=== PATIENT | male | born 1935 | race Caucasian/White ===

== ENCOUNTER 2016-07-08 07:17 | Day surgery (SDC) | payer MEDICARE, OTHER ==
[~2016-07-08 07:17] MED LIST: Lactated Ringers 1,000 ML IV SCH; Propofol 200 MG/20 ML SDV ONE; fentaNYL 100 MCG/2 ML SDV ONE
[2016-07-08 09:51] VITALS: BP 120/63
--- NOTE | 2016-07-09 08:07 | OR ---
DATE OF PROCEDURE: 07/08/2016 PREOPERATIVE DIAGNOSES: History of colon polyps. POSTOPERATIVE DIAGNOSIS: Diverticulosis, history of colon polyps. PROCEDURE: Colonoscopy to the cecum. ANESTHESIA: IV anesthesia with monitored anesthesia care. INDICATION: This 80-year-old white male is referred for a colonoscopy. He says he has a history of colon polyps. He says his last colonoscopic exam was done eight years ago. I counseled him for a colonoscopy with possible biopsy and/or polypectomy including risks and alternatives, and he gave his informed consent to proceed. DESCRIPTION OF PROCEDURE: The patient was placed in the left lateral decubitus position. IV anesthesia was administered by the Anesthesia Service. Time-out was held. A rectal exam was performed, which was unremarkable. The flexible video Olympus colonoscope was introduced through his anus, up his rectum, and out his colon all the way to the cecum. En route, we saw multiple left-sided diverticula, some of which were quite large. There was no bleeding or inflammation associated with any of them. Once the cecum was reached, the scope was slowly withdrawn examining the mucosa throughout. No additional mucosal abnormalities were noted. The scope was retroflexed in the rectum with the distal rectum appearing unremarkable. The scope was straightened and removed. He tolerated the procedure well. Johan Narayanan MD /[id number] MTDD
== END 2016-07-08 09:52 | disposition home or self-care (01) ==
LOC: JP.SDS 07:17
PROVIDERS: ATTEND Surgery
PROC: 0DJD8ZZ Inspection of Lower Intestinal Tract, Via Natural or Artificial Opening Endoscopic (ICD-10-PCS; principal; 2016-07-08)
DX: K57.90 Diverticulosis of intestine, part unspecified, without perforation or abscess without bleeding (principal); Z86.010 Personal history of colon polyps; Z88.0 Allergy status to penicillin; Z88.2 Allergy status to sulfonamides; Z88.8 Allergy status to other drugs, medicaments and biological substances; Z12.11 Encounter for screening for malignant neoplasm of colon
CPT/HCPCS: G0105; J2704; J3010; J7120

== ENCOUNTER 2016-12-06 11:06 | Emergency (ER) | payer MEDICARE, OTHER ==
[2016-12-06 11:25] VITALS: BP 146/85
--- NOTE | 2016-12-06 12:29 | EDM.PDOC ---
ED HPI GENERAL MEDICAL PROBLEM - General Chief Complaint: Allergic Reaction Stated Complaint: LEFT ARM BEE STING Time Seen by Provider: 12/06/16 11:50 Source of Information: Reports: Patient History Limitations: Reports: No Limitations - History of Present Illness INITIAL COMMENTS - FREE TEXT/NARRATIVE: 81-year-old gentleman presents emergency department day with a bee sting to his left arm he states this occurred yesterday he does have some swelling and redness around the arm no difficulty breathing no shortness of breath no throat tightening he has been using Benadryl which does provide some relief left wrist Pain Score (Numeric/FACES): 2 - Related Data Allergies Allergy/AdvReac Type Severity Reaction Status Date / Time Penicillins Allergy Rash Verified 12/06/16 11:19 Sulfa (Sulfonamide Allergy Rash Verified 12/06/16 11:19 Antibiotics) aspirin AdvReac Nausea Verified 12/06/16 11:19 Home Meds: Home Meds Aspirin [Delisa Chewable] 81 mg PO BEDTIME 12/08/12 [History] Citalopram Hydrobromide [Celexa] 20 mg PO DAILY 12/08/12 [History] Gabapentin [Neurontin] 300 mg PO BEDTIME 12/08/12 [History] Metoprolol Succinate [Toprol XL] 25 mg PO DAILY 12/08/12 [History] Naproxen Sodium [Naprelan] 500 mg PO BID 12/08/12 [History] Nitroglycerin [Nitrostat] 0.4 mg SL ASDIRECTED PRN 12/08/12 [History] Olopatadine HCl [Patanol] 0.1 drop EYEBOTH BID 12/08/12 [History] Pantoprazole Sodium [Protonix] 40 mg PO DAILY 12/08/12 [History] Simvastatin [Zocor] 20 mg PO BEDTIME 12/08/12 [History] Albuterol Sulfate [Albuterol Sulfate HFA] 1 puff IH BID PRN 06/09/13 [History] Acetaminophen [Tylenol Extra Strength] 500 mg PO Q6H PRN 07/04/16 [History] Calcium Carbonate/Vitamin D3 [Calcium 1,000 + D3 Caplet] 1 each PO DAILY [History] Cetirizine HCl [Zyrtec] 10 mg PO DAILY 07/04/16 [History] Clotrimazole/Betamethasone Dip [Lotrisone Cream] 2 applic TP BID 07/04/16 [ History] Cyanocobalamin/Folic Acid [B-12 1,000 Mcg Sub Tablet] 1 each SL DAILY 07/04/16 [ History] Cyclobenzaprine [Flexeril] 10 mg PO BID PRN 07/04/16 [History] Fish Oil/[place]osal[place]-3 Fatty Acids [Fish Oil] 1 each PO BID 07/04/16 [History] Gluc 2KCl/Chondr/Evan Hy/Hy Ac [Glucosamine & Chondroitin Cap] 1 each PO DAILY 07/04/16 [History] HYDROcodone/Chlorphen Polis [Hydrocodone-Chlorpheniram] 5 ml PO Q12H PRN [History] Losartan [Cozaar] 100 mg PO DAILY 07/04/16 [History] Tamsulosin HCl [Flomax] 0.4 mg PO DAILY 07/04/16 [History] Past Medical History HEENT History: Reports: Allergic Rhinitis, Hard of Hearing, Other (See Below) Other HEENT History: dry eye Cardiovascular History: Reports: Bypass, CAD, Hypertension Respiratory History: Reports: Asthma, SOB Gastrointestinal History: Reports: GERD, Hiatal Hernia Other Gastrointestinal History: hernia, 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 Genitourinary History: Reports: Prostate Disorder Musculoskeletal History: Reports: Arthritis, Neck Pain, Chronic Other Musculoskeletal History: sacrio-illiac, 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 Psychiatric History: Reports: Depression Endocrine/Metabolic History: Reports: Obesity/BMI 30+ Hematologic History: Reports: Anticoagulation Therapy, Other (See Below) Other Hematologic History: asa Oncologic (Cancer) History: Reports: Other (See Below) Other Oncologic History: skin Other Dermatologic History: basal cell carcinoma on face - Infectious Disease History Infectious Disease History: Reports: None - Past Surgical History HEENT Surgical History: Reports: Eye Surgery Cardiovascular Surgical History: Reports: Coronary Artery Bypass, Coronary Artery Stent, Valve Replacement Respiratory Surgical History: Reports: None Musculoskeletal Surgical History: Reports: Nerve Relocation Dermatological Surgical History: Reports: Skin Biopsy Social & Family History - Family History Family Medical History: Noncontributory - Tobacco Use Smoking Status *Q: Never Smoker Years of Tobacco use: 30 Packs/Tins Daily: 4 Used Tobacco, but Quit: Yes Month Tobacco Last Used: mar Second Hand Smoke Exposure: No - Caffeine Use Caffeine Use: Reports: Coffee - Alcohol Use Days Per Week of Alcohol Use: 3 Number of Drinks Per Day: 2 Total Drinks Per Week: 6 - Recreational Drug Use Recreational Drug Use: No ED ROS ALLERGIC REACTION - Review of Systems Review Of Systems: See Below Constitutional: Reports: No Symptoms HEENT: Reports: No Symptoms Respiratory: Reports: No Symptoms Cardiovascular: Reports: No Symptoms GI/Abdominal: Reports: No Symptoms Skin: Reports: Rash, Wound, Other (Edema) ED EXAM GENERAL NO PERIP PULSE - Physical Exam Exam: See Below Text/Narrative:: Examination left arm and do appreciate edema probably in the forearm and hand there is a small wound no stingers appreciated radial pulses 2+ full range of motion of all digits does have surgical scar on the posterior aspect of the forearm which is clean dry and intact healing well Respiratory/Chest: No Respiratory Distress Course - Vital Signs Last Recorded V/S: Last Vital Signs Temp 97.7 F 12/06/16 11:24 Pulse 89 12/06/16 11:24 Resp 16 12/06/16 11:24 BP 146/85 H 12/06/16 11:24 Pulse Ox 96 12/06/16 11:24 Departure - Departure Time of Disposition: 12:28 Disposition: Home, Self-Care 01 Condition: Good Clinical Impression: Bee sting Qualifiers: Encounter type: initial encounter Injury intent: accidental or unintentional Qualified Code(s): T63.441A - Toxic effect of venom of bees, accidental ( unintentional), initial encounter - Discharge Information Referrals: Donte Lee MD [Primary Care Provider] - Additional Instructions: Use EpiPen per direction keep your follow-up appointment with allergy, call return to the emergency department with worsening of symptoms - Assessment/Plan Plan: Assessment Acuity = acute Site and laterality = bee sting with local reaction Etiology = bee venom Manifestations = none Location of injury = Home Lab values = none Plan I did review with him some of his past medical history wrote a prescription for Epi[place] felt it best that he has this available he does have follow-up with allergy next week Patient was in agreement with the plan all questions were answered, they were instructed to return to the emergency department or call for worsening symptoms. This note was dictated using [employer] voice recognition software please call with any questions.
== END 2016-12-06 12:49 | disposition home or self-care (01) ==
LOC: JP.ED 11:06
DX: T63.441A Toxic effect of venom of bees, accidental (unintentional), initial encounter (principal); I25.10 Atherosclerotic heart disease of native coronary artery without angina pectoris; I10 Essential (primary) hypertension; J45.909 Unspecified asthma, uncomplicated; K21.9 Gastro-esophageal reflux disease without esophagitis; M19.90 Unspecified osteoarthritis, unspecified site; E66.9 Obesity, unspecified; Z79.01 Long term (current) use of anticoagulants; Z95.1 Presence of aortocoronary bypass graft; Z98.890 Other specified postprocedural states; Z95.5 Presence of coronary angioplasty implant and graft; Z79.899 Other long term (current) drug therapy; Z79.82 Long term (current) use of aspirin; Z88.0 Allergy status to penicillin; Z88.2 Allergy status to sulfonamides; Z88.6 Allergy status to analgesic agent
CPT/HCPCS: 99283

== ENCOUNTER 2017-02-08 16:10 | Emergency (ER) | payer MEDICARE, OTHER ==
[2017-02-08 16:38] VITALS: BP 121/66
[2017-02-08] MEDS ORDERED: HYDROmorphone 1 MG/ML Syringe IM ONE (16:46)
--- NOTE | 2017-02-08 16:48 | EDM.PDOC ---
<OfficerAryan - Last Filed: 02/08/17 16:46> ED HPI GENERAL MEDICAL PROBLEM - General Chief Complaint: Back Pain or Injury Stated Complaint: FELL 02/07 Time Seen by Provider: 02/08/17 16:40 Source of Information: Reports: Patient, Family, RN Notes Reviewed History Limitations: Reports: No Limitations - History of Present Illness INITIAL COMMENTS - FREE TEXT/NARRATIVE: 81-year-old gentleman presents to the emergency department today with complaint of left rib and flank pain, this happened yesterday when he slipped and fell on some ice and landed on a tree stump while he was deer hunting he has no shortness of breath he denies any other symptoms other than pain which is making it difficult for him to move around - Related Data Allergies Allergy/AdvReac Type Severity Reaction Status Date / Time Penicillins Allergy Rash Verified 02/08/17 18:20 Sulfa (Sulfonamide Allergy Rash Verified 02/08/17 18:20 Antibiotics) aspirin AdvReac Nausea Verified 02/08/17 18:20 Home Meds: Home Meds Aspirin [Delisa Chewable] 81 mg PO BEDTIME 12/08/12 [History] Citalopram Hydrobromide [Celexa] 20 mg PO DAILY 12/08/12 [History] Gabapentin [Neurontin] 300 mg PO BEDTIME 12/08/12 [History] Metoprolol Succinate [Toprol XL] 25 mg PO DAILY 12/08/12 [History] Naproxen Sodium [Naprelan] 500 mg PO BID 12/08/12 [History] Nitroglycerin [Nitrostat] 0.4 mg SL ASDIRECTED PRN 12/08/12 [History] Olopatadine HCl [Patanol] 0.1 drop EYEBOTH BID 12/08/12 [History] Pantoprazole Sodium [Protonix] 40 mg PO DAILY 12/08/12 [History] Simvastatin [Zocor] 20 mg PO BEDTIME 12/08/12 [History] Albuterol Sulfate [Albuterol Sulfate HFA] 1 puff IH BID PRN 06/09/13 [History] Acetaminophen [Tylenol Extra Strength] 500 mg PO Q6H PRN 07/04/16 [History] Calcium Carbonate/Vitamin D3 [Calcium 1,000 + D3 Caplet] 1 each PO DAILY [History] Cetirizine HCl [Zyrtec] 10 mg PO DAILY 07/04/16 [History] Clotrimazole/Betamethasone Dip [Lotrisone Cream] 2 applic TP BID 07/04/16 [ History] Cyanocobalamin/Folic Acid [B-12 1,000 Mcg Sub Tablet] 1 each SL DAILY 07/04/16 [ History] Cyclobenzaprine [Flexeril] 10 mg PO BID PRN 07/04/16 [History] Fish Oil/[place]-3 Fatty Acids [Fish Oil] 1 each PO BID 07/04/16 [History] Gluc 2KCl/Chondr/Evan Hy/Hy Ac [Glucosamine & Chondroitin Cap] 1 each PO DAILY 07/04/16 [History] Losartan [Cozaar] 100 mg PO DAILY 07/04/16 [History] Tamsulosin HCl [Flomax] 0.4 mg PO DAILY 07/04/16 [History] Past Medical History HEENT History: Reports: Allergic Rhinitis, Hard of Hearing, Other (See Below) Other HEENT History: dry eye Cardiovascular History: Reports: Bypass, CAD, Hypertension Respiratory History: Reports: Asthma, SOB Gastrointestinal History: Reports: GERD, Hiatal Hernia Other Gastrointestinal History: hernia, 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 Genitourinary History: Reports: Prostate Disorder Musculoskeletal History: Reports: Arthritis, Neck Pain, Chronic Other Musculoskeletal History: sacrio-illiac, 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 Psychiatric History: Reports: Depression Endocrine/Metabolic History: Reports: Obesity/BMI 30+ Hematologic History: Reports: Anticoagulation Therapy, Other (See Below) Other Hematologic History: asa Oncologic (Cancer) History: Reports: Other (See Below) Other Oncologic History: skin Other Dermatologic History: basal cell carcinoma on face - Infectious Disease History Infectious Disease History: Reports: None - Past Surgical History HEENT Surgical History: Reports: Eye Surgery Cardiovascular Surgical History: Reports: Coronary Artery Bypass, Coronary Artery Stent, Valve Replacement Respiratory Surgical History: Reports: None Musculoskeletal Surgical History: Reports: Nerve Relocation Dermatological Surgical History: Reports: Skin Biopsy Social & Family History - Family History Family Medical History: Noncontributory - Tobacco Use Smoking Status *Q: Never Smoker Years of Tobacco use: 30 Packs/Tins Daily: 4 Used Tobacco, but Quit: Yes Month Tobacco Last Used: mar Second Hand Smoke Exposure: No - Caffeine Use Caffeine Use: Reports: Coffee - Alcohol Use Days Per Week of Alcohol Use: 3 Number of Drinks Per Day: 2 Total Drinks Per Week: 6 - Recreational Drug Use Recreational Drug Use: No ED ROS GENERAL - Review of Systems Review Of Systems: See Below Constitutional: Reports: No Symptoms Respiratory: Reports: No Symptoms Cardiovascular: Reports: No Symptoms GI/Abdominal: Reports: No Symptoms : Reports: Flank Pain Musculoskeletal: Reports: Back Pain Skin: Reports: No Symptoms Neurological: Reports: No Symptoms ED EXAM,LOWER BACK PAIN/INJURY - Physical Exam Exam: See Below Exam Limited By: No Limitations General Appearance: Alert, WD/WN, No Apparent Distress Respiratory/Chest: No Respiratory Distress, Lungs Clear, Normal Breath Sounds, No Accessory Muscle Use, Chest Non-Tender Cardiovascular: Regular Rate, Rhythm, No Murmur GI/Abdominal: Soft, Non-Tender Back Exam: Normal Inspection, CVA Tenderness (L), Decreased Range of Motion, Muscle Spasm, Paraspinal Tenderness. No: Full Range of Motion, CVA Tenderness ( R), Vertebral Tenderness Course - Vital Signs Last Recorded V/S: Last Vital Signs Temp 96.6 F 02/08/17 16:35 Pulse 77 02/08/17 16:35 Resp 14 02/08/17 16:35 BP 121/66 02/08/17 16:35 Pulse Ox 92 L 02/08/17 16:35 - Orders/Labs/Meds Orders: Active Orders 24 hr Category Date Time Status Peripheral IV Care [RC] . DIRECTED Care 02/08/17 17:51 Active Abdomen Pelvis w Cont [CT] Stat Exams 02/08/17 17:51 Ordered Peripheral IV Insertion Adult [OM.PC] Urgent Oth 02/08/17 17:50 Ordered Labs: Laboratory Tests 02/08/17 02/08/17 02/08/17 Range/Units 16:56 16:56 17:46 WBC 4.9 (4.5-11.0) K/uL RBC 3.18 L (4.30-5.90) M/uL Hgb 10.4 L D (12.0-15.0) g/dL Hct 32.3 L (40.0-54.0) % MCV 102 H (80-98) fL MCH 33 H (27-31) pg MCHC 32 (32-36) % Plt Count 159 (150-400) K/uL Neut % (Auto) 56 (36-66) % Lymph % (Auto) 28 (24-44) % [place] % (Auto) 14 H (2-6) % Eos % (Auto) 2 (2-4) % Baso % (Auto) 0 (0-1) % Sodium 138 L (140-148) mmol/L Potassium 4.2 (3.6-5.2) mmol/L Chloride 105 (100-108) mmol/L Carbon Dioxide 26 (21-32) mmol/L Anion Gap 11.2 (5.0-14.0) mmol/L BUN 23 H (7-18) mg/dL Creatinine 1.2 (0.8-1.3) mg/dL Est Cr Clr Drug Dosing 49.10 mL/min Estimated GFR (MDRD) 58 L (>60) Glucose 113 H (74-106) mg/dL Calcium 8.9 (8.5-10.1) mg/dL Total Bilirubin 0.8 (0.2-1.0) mg/dL AST 36 D (15-37) U/L ALT 59 (12-78) U/L Alkaline Phosphatase 61 (46-116) U/L Total Protein 7.0 (6.4-8.2) g/dL Albumin 3.7 (3.4-5.0) g/dL Globulin 3.3 (2.3-3.5) g/dL Albumin/Globulin Ratio 1.1 L (1.2-2.2) Urine Color Yellow Urine Appearance Slightly cloudy Urine pH 5.0 (4.5-8.0) Ur Specific [place] 1.030 (1.008-1.030) Urine Protein Negative (NEGATIVE) mg/dL Urine Glucose (UA) Normal (NEGATIVE) mg/dL Urine Ketones Negative (NEGATIVE) mg/dL Urine Occult Blood Negative (NEGATIVE) Urine Nitrite Negative (NEGAITVE) Urine Bilirubin Small (NEGATIVE) Urine Urobilinogen 1 (NORMAL) mg/dL Ur Leukocyte Esterase Negative (NEGATIVE) Urine RBC 0-5 (0-5) Urine WBC 0-5 (0-5) Ur Epithelial Cells Few Amorphous Sediment Few Urine Bacteria Moderate Urine Mucus Numerous Meds: Medications Discontinued Medications Generic Name Dose Route Start Last Admin Trade Name Freq PRN Reason Stop Dose Admin Hydromorphone HCl 1 mg 02/08/17 16:46 02/08/17 16:58 Dilaudid IM 11/11/17 16:47 1 mg ONETIME ONE Administration Sodium Chloride 1,000 mls @ 500 mls/hr 02/08/17 18:00 02/08/17 18:43 Normal Saline IV 500 mls/hr ASDIRECTED DICK Administration Sodium Chloride 100 mls @ 3.5 mls/sec 02/08/17 18:30 02/08/17 18:36 Normal Saline IV 4 mls/sec ASDIRECTED DICK Administration Iopamidol 150 ml 02/08/17 18:19 02/08/17 18:36 Isovue-300 (61%) IV 02/09/17 18:20 138 ml . DIRECTED PRN Administration RADIOLOGY EXAM Sodium Chloride 10 ml 02/08/17 17:51 02/08/17 18:42 Saline Flush FLUSH 10 ml ASDIRECTED PRN Administration Keep Vein Open Departure - Departure Disposition: Home, Self-Care 01 Clinical Impression: Ribs, multiple fractures Qualifiers: Encounter type: initial encounter Fracture type: closed Laterality: left Qualified Code(s): S22.42XA - Multiple fractures of ribs, left side, initial encounter for closed fracture - Discharge Information Instructions: Rib Fracture, [id number] Referrals: Donte Lee MD [Primary Care Provider] - Forms: ED Department Discharge Care Plan Goals: Use ibuprofen or naproxen for pain control and add stronger pain medication as needed. Try to stay active and return anytime if worsening or concerns such as increasing shortness of breath or uncontrolled pain. Take labs with to your recheck appointments later this week. <Gavin Elizondo - Last Filed: 02/08/17 20:16> Course - Re-Assessments/Exams Free Text/Narrative Re-Assessment/Exam: 02/08/17 19:20 Care of patient received from Officer pending a CT scan to assess traumatic injury to the left flank. Nondisplaced 10th and 11th rib fractures found, no other finding. Patient has follow-up appointments later this week with hematology and cardiology, copies of the labs were given to the patient because of a slowly declining hemoglobin. He will discuss these with his follow-ups. He was given 20 hydrocodone to use as needed for extra pain control while his ribs are healing. He will return if worsening such as increasing shortness of breath or uncontrolled pain. Departure - Departure Time of Disposition: 19:57 Condition: Good
[2017-02-08] MEDS ORDERED: Sodium Chloride 0.9% 10 ML Syringe FLUSH PRN (17:51)
[2017-02-08] MEDS ORDERED: Sodium Chloride 0.9% 1,000 ML IV SCH (18:00)
[2017-02-08] MEDS ORDERED: Iopamidol 612 MG/ML 150 ML Bottle IV PRN (18:19)
[2017-02-08] MEDS ORDERED: Sodium Chloride 0.9% 100 ML IV SCH (18:30)
== END 2017-02-08 19:57 | disposition home or self-care (01) ==
LOC: JP.ED 16:10
DX: S22.42XA Multiple fractures of ribs, left side, initial encounter for closed fracture (principal); Z88.2 Allergy status to sulfonamides; Z88.8 Allergy status to other drugs, medicaments and biological substances; Z79.899 Other long term (current) drug therapy; I10 Essential (primary) hypertension; E66.9 Obesity, unspecified; W00.0XXA Fall on same level due to ice and snow, initial encounter
CPT/HCPCS: 36415; 74177; 80053; 81001; 85025; 96360; 96361; 96372; 99284; J1170; J7030; J7040; J7050

== ENCOUNTER 2023-03-25 12:43 | Emergency (ER) | payer MEDICARE, OTHER ==
[2023-03-25 13:04] LABS: BASOPHILS ABSOLUTE AUTO 0.03 K/uL (0.00-0.10); BASOPHILS PERCENT AUTO 0.5 % (0.1-1.3); EOSINOPHILS ABSOLUTE AUTO 0.12 K/uL (0.00-0.40); HEMATOCRIT 36.5 % (38.4-49.7); HEMOGLOBIN 12.5 g/dL (12.9-16.9); IMMATURE GRAN ABSOLUTE AUTO 0.04 K/uL (0.00-0.23); IMMATURE GRAN PERCENT AUTO 0.7 % (0.0-0.7); LYMPHOCYTES ABSOLUTE AUTO 1.65 K/uL (0.8-3.3); LYMPHOCYTES PERCENT AUTO 27.4 % (11.4-47.7); MEAN CORPUSCULAR HEMOGLOBIN 34.7 pg (31.6-35.5); MEAN CORPUSCULAR HGB CONC 34.2 g/dL (31.6-35.5); MEAN CORPUSCULAR VOLUME 101.4 fL (81.4-99.0); MONOCYTES ABSOLUTE AUTO 0.55 K/uL (0.20-0.90); MONOCYTES PERCENT AUTO 9.1 % (3.3-12.6); NEUTROPHILS ABSOLUTE AUTO 3.64 K/uL (1.0-7.6); NEUTROPHILS PERCENT AUTO 60.3 % (40.0-78.1); PLATELET COUNT,PLT 158 K/uL (130-375)
[2023-03-25 13:24] LABS: ALANINE AMINOTRANSFERASE,ALT 28 U/L (12-78); ALBUMIN 3.7 g/dL (3.4-5.0); ALKALINE PHOSPHATASE 66 U/L (46-116); ASPARTATE AMNIOTRANSFERASE,AST 26 U/L (15-37); BILIRUBIN TOTAL 0.6 mg/dL (0.2-1.0); BLOOD UREA NITROGEN,BUN 31 mg/dL (7-18); CALCIUM 8.9 mg/dL (8.5-10.1); CARBON DIOXIDE,CO2 28 mmol/L (21-32); CHLORIDE,CL 102 mmol/L (100-108); CREATININE 1.4 mg/dL (0.8-1.3); EST CRCL DRUG DOSING (CG) 37.88 mL/min; ESTIMATED GFR 49 mL/min (>60); GLUCOSE RANDOM 106 mg/dL (74-106); POTASSIUM,K 3.5 mmol/L (3.6-5.2); PROTEIN TOTAL,TP 7.3 g/dL (6.4-8.2); SODIUM,NA 139 mmol/L (140-148)
[2023-03-25 13:27] LABS: ANION GAP 12.5 mmol/L (5.0-14.0)
[2023-03-25] MEDS ORDERED: Bacitracin Oint 1 GM U/D Packet TOP ONE (16:10)
[2023-03-25] MEDS ORDERED: Lidocaine 1% 5 ML VIAL INJECT ONE (16:10)
[2023-03-25] MEDS ORDERED: Acetaminophen 325 MG Tab PO ONE (16:51)
[2023-03-25 17:11] VITALS: BP 156/74; PULSE 56
== END 2023-03-25 18:08 | disposition home or self-care (01) ==
LOC: JP.ED 12:43
DX: S02.40DA Maxillary fracture, left side, initial encounter for closed fracture (principal); I10 Essential (primary) hypertension; J45.909 Unspecified asthma, uncomplicated; I25.10 Atherosclerotic heart disease of native coronary artery without angina pectoris; E66.9 Obesity, unspecified; K21.9 Gastro-esophageal reflux disease without esophagitis; Z95.1 Presence of aortocoronary bypass graft; Z95.5 Presence of coronary angioplasty implant and graft; Z79.899 Other long term (current) drug therapy; Z79.82 Long term (current) use of aspirin; Z88.0 Allergy status to penicillin; Z88.2 Allergy status to sulfonamides; Z68.26 Body mass index [BMI] 26.0-26.9, adult; W01.0XXA Fall on same level from slipping, tripping and stumbling without subsequent striking against object, initial encounter
CPT/HCPCS: 12011; 36415; 70450; 70486; 71101; 72125; 76377; 80053; 85025; 99284; A9270

== ENCOUNTER 2024-04-01 17:24 | Inpatient (IN) | payer OTHER, MEDICARE ==
[2024-04-01 18:24] LABS: BASOPHILS ABSOLUTE AUTO 0.03 K/uL (0.00-0.10); BASOPHILS PERCENT AUTO 0.4 % (0.1-1.3); EOSINOPHILS ABSOLUTE AUTO 0.07 K/uL (0.00-0.40); HEMATOCRIT 33.8 % (38.4-49.7); HEMOGLOBIN 11.8 g/dL (12.9-16.9); IMMATURE GRAN ABSOLUTE AUTO 0.05 K/uL (0.00-0.23); IMMATURE GRAN PERCENT AUTO 0.7 % (0.0-0.7); LYMPHOCYTES ABSOLUTE AUTO 0.88 K/uL (0.8-3.3); LYMPHOCYTES PERCENT AUTO 12.3 % (11.4-47.7); MEAN CORPUSCULAR HEMOGLOBIN 35.4 pg (31.6-35.5); MEAN CORPUSCULAR HGB CONC 34.9 g/dL (31.6-35.5); MEAN CORPUSCULAR VOLUME 101.5 fL (81.4-99.0); MONOCYTES PERCENT AUTO 11.2 % (3.3-12.6); NEUTROPHILS ABSOLUTE AUTO 5.33 K/uL (1.0-7.6); NEUTROPHILS PERCENT AUTO 74.4 % (40.0-78.1); PLATELET COUNT,PLT 155 K/uL (130-375); RED BLOOD CELL COUNT 3.33 M/uL (4.14-5.76); WHITE BLOOD CELL COUNT,WBC 7.2 K/uL (3.2-11.0)
[2024-04-01] MEDS: Acetaminophen 500 MG Tab PO ONE (18:40)
[2024-04-01 18:41] LABS: ANION GAP 14.2 mmol/L (5.0-14.0); CALCIUM 8.1 mg/dL (8.5-10.1); CREATININE 1.4 mg/dL (0.8-1.3); EST CRCL DRUG DOSING (CG) 37.17 mL/min; POTASSIUM,K 3.2 mmol/L (3.6-5.2)
[2024-04-01] MEDS ORDERED: Ondansetron 4 MG Tab.DIS PO PRN (23:17)
[2024-04-01] MEDS ORDERED: Melatonin 3 MG Tab PO PRN (23:17)
[2024-04-01] MEDS ORDERED: Sennosides/Docusate Sodium 50-8.6 MG Tab PO PRN (23:17)
[2024-04-01] MEDS ORDERED: Ondansetron 4 MG/2 ML SDV IV PRN (23:17)
[2024-04-01] MEDS ORDERED: Magnesium Hydroxide 400 MG/5 ML Susp 30 ML Cup PO PRN (23:17)
[2024-04-01] MEDS: Cyclobenzaprine 10 MG Tab PO PRN (23:38)
[2024-04-01] MEDS: Acetaminophen 325 MG Tab PO PRN (23:38)
[2024-04-02 03:38] LABS: AMORPHOUS SEDIMENT,URINE NOT SEEN; APPEARANCE,URINE SLIGHTLY CLOUDY (CLEAR); BACTERIA,URINE FEW; BILIRUBIN,URINE NEGATIVE (NEGATIVE); COLOR,URINE YELLOW (YELLOW); EPITHELIAL CELLS,URINE NOT SEEN; GLUCOSE,URINE NEGATIVE (NEGATIVE); KETONES,URINE NEGATIVE (NEGATIVE); LEUKOCYTE ESTERASE,URINE NEGATIVE (NEGATIVE); MUCUS,URINE NOT SEEN; NITRITE,URINE NEGATIVE (NEGATIVE); OCCULT BLOOD,URINE NEGATIVE (NEGATIVE); PROTEIN,URINE NEGATIVE (NEGATIVE); RBC,URINE 0-5 (0-5); WBC,URINE 0-5 (0-5)
[2024-04-02] MEDS: Potassium Chloride 20 MEQ Tab.ER PO ONE ×2 (03:46→09:17)
[2024-04-02 04:26] LABS: HEMATOCRIT 32.1 % (38.4-49.7); HEMOGLOBIN 11.1 g/dL (12.9-16.9); MEAN CORPUSCULAR HGB CONC 34.6 g/dL (31.6-35.5); MEAN CORPUSCULAR VOLUME 101.3 fL (81.4-99.0); RED BLOOD CELL COUNT 3.17 M/uL (4.14-5.76); WHITE BLOOD CELL COUNT,WBC 6.7 K/uL (3.2-11.0)
[2024-04-02 04:48] LABS: CALCIUM 8.8 mg/dL (8.5-10.1); CREATININE 1.2 mg/dL (0.8-1.3); EST CRCL DRUG DOSING (CG) 43.37 mL/min; POTASSIUM,K 3.2 mmol/L (3.6-5.2)
[2024-04-02 05:15] LABS: ANION GAP 12.2 mmol/L (5.0-14.0)
[2024-04-02] MEDS ORDERED: Albuterol 6.7 GM Inhaler INH PRN (08:40)
[2024-04-02] MEDS: Pantoprazole 40 MG Delayed-Release Granules 1 Packet PO SCH (13:16)
[2024-04-02] MEDS: Naproxen 250 MG Tab PO SCH (13:16)
[2024-04-02] MEDS: Simethicone 125 MG Tab.Chew PO SCH (13:17)
[2024-04-02] MEDS: Tamsulosin 0.4 MG Cap.ER PO SCH (13:17)
[2024-04-02] MEDS: Brimonidine 0.2% Ophth Soln 5 ML Bottle EYELF SCH (13:17)
[2024-04-02] MEDS: Citalopram 20 MG Tab PO SCH (13:17)
[2024-04-02] MEDS: Propranolol 60 MG Cap.ER PO SCH (13:17)
[2024-04-02] MEDS: Dorzolamide/Timolol 2%-0.5% Ophth Soln 10 ML Bottle EYEBOTH SCH (13:18)
[2024-04-02] MEDS: Mometasone Furoate Powder 220 MCG/Puff 14 Dose Inhaler INH SCH (14:36)
[2024-04-02] MEDS: Enoxaparin 40 MG/0.4 ML Syringe SUBCUT SCH (17:32)
[2024-04-02] MEDS: Haloperidol Lactate 5 MG/ML SDV IVPUSH PRN (18:41)
[2024-04-02] MEDS: Haloperidol Lactate 5 MG/ML SDV IM ONE (19:21)
[2024-04-02] MEDS: Fluticasone NASAL Spray 16 GM Bottle NASBOTH SCH (20:07)
[2024-04-02] MEDS: atorvaSTATin 20 MG Tab PO SCH (20:07)
[2024-04-02] MEDS: Melatonin 3 MG Tab PO SCH (20:08)
[2024-04-02] MEDS: Latanoprost 0.005% Ophth Soln 2.5 ML Bottle EYEBOTH SCH (20:09)
[2024-04-02] MEDS: Aspirin 81 MG Tab.Chew PO SCH (20:09)
[2024-04-02] MEDS: Primidone 50 MG Tab PO SCH (20:09)
[2024-04-03] MEDS: QUEtiapine 25 MG Tab PO ONE (00:30)
[2024-04-03 06:22] LABS: CALCIUM 9.3 mg/dL (8.5-10.1); CREATININE 1.3 mg/dL (0.8-1.3); EST CRCL DRUG DOSING (CG) 40.03 mL/min; MAGNESIUM 1.8 mg/dL (1.8-2.4); POTASSIUM,K 3.8 mmol/L (3.6-5.2)
[2024-04-03 06:32] LABS: ANION GAP 11.8 mmol/L (5.0-14.0)
[2024-04-03] MEDS: Pantoprazole 40 MG Tab.CR PO SCH (10:21)
[2024-04-04] MEDS ORDERED: QUEtiapine 25 MG Tab PO PRN (09:06)
[2024-04-04] MEDS: Polyethylene Glycol 3350 Powder 17 GM Packet PO SCH (14:03)
[2024-04-04] MEDS: QUEtiapine 25 MG Tab PO SCH (16:37)
[2024-04-05 11:09] VITALS: BP 122/65; PULSE 73
== END 2024-04-05 13:55 | DRG 563 ==
LOC: JP.ED 17:24 → JP.MS 22:14 → OBSVTOIN 04-02 12:38 → JP.MS 04-02 16:48
PROVIDERS: ADMIT Registered Nurse; ATTEND Internal Medicine
DX: S62.002A Unspecified fracture of navicular [scaphoid] bone of left wrist, initial encounter for closed fracture (principal); S22.41XA Multiple fractures of ribs, right side, initial encounter for closed fracture; S22.089A Unspecified fracture of T11-T12 vertebra, initial encounter for closed fracture; S22.32XA Fracture of one rib, left side, initial encounter for closed fracture; F02.818 Dementia in other diseases classified elsewhere, unspecified severity, with other behavioral disturbance; S82.61XA Displaced fracture of lateral malleolus of right fibula, initial encounter for closed fracture; W19.XXXA Unspecified fall, initial encounter; R29.6 Repeated falls; H40.9 Unspecified glaucoma; Z79.84 Long term (current) use of oral hypoglycemic drugs; E78.00 Pure hypercholesterolemia, unspecified; I10 Essential (primary) hypertension; H91.90 Unspecified hearing loss, unspecified ear; J44.89 Other specified chronic obstructive pulmonary disease; K21.9 Gastro-esophageal reflux disease without esophagitis; F15.90 Other stimulant use, unspecified, uncomplicated; E87.6 Hypokalemia; G30.9 Alzheimer's disease, unspecified; F32.A Depression, unspecified; E66.9 Obesity, unspecified; Z68.25 Body mass index [BMI] 25.0-25.9, adult; Z79.01 Long term (current) use of anticoagulants; Z87.81 Personal history of (healed) traumatic fracture; Z95.1 Presence of aortocoronary bypass graft; Z95.5 Presence of coronary angioplasty implant and graft; Z95.2 Presence of prosthetic heart valve; Z98.890 Other specified postprocedural states; Z90.49 Acquired absence of other specified parts of digestive tract; Z87.891 Personal history of nicotine dependence; Z88.0 Allergy status to penicillin; Z88.2 Allergy status to sulfonamides; Y93.89 Activity, other specified; Y92.009 Unspecified place in unspecified non-institutional (private) residence as the place of occurrence of the external cause; Z79.82 Long term (current) use of aspirin; Z79.51 Long term (current) use of inhaled steroids; Z79.1 Long term (current) use of non-steroidal anti-inflammatories (NSAID); Z79.2 Long term (current) use of antibiotics; Z79.899 Other long term (current) drug therapy; Z79.02 Long term (current) use of antithrombotics/antiplatelets
CPT/HCPCS: 36415; 70450; 71250; 72125; 730802650; 73080-50; 73110-26-LT; 73110-LT; 73610-26-RT; 73610-RT; 73630-26-RT; 73630-RT; 74176; 76377; 80048; 81001; 83735; 85025; 85027; 94640; 97110-GP; 97161-GP; 99285; A9270-GY; G0378; J1630; J1650

== ENCOUNTER 2024-06-27 01:35 | Emergency (ER) | payer OTHER, MEDICARE ==
[2024-06-27 02:24] LABS: BASOPHILS PERCENT AUTO 0.2 % (0.1-1.3); EOSINOPHILS PERCENT AUTO 0.2 % (0.0-5.4); HEMOGLOBIN 10.8 g/dL (12.9-16.9); IMMATURE GRAN ABSOLUTE AUTO 0.03 K/uL (0.00-0.23); IMMATURE GRAN PERCENT AUTO 0.5 % (0.0-0.7); LYMPHOCYTES ABSOLUTE AUTO 1.33 K/uL (0.8-3.3); LYMPHOCYTES PERCENT AUTO 20.7 % (11.4-47.7); MEAN CORPUSCULAR HEMOGLOBIN 34.6 pg (31.6-35.5); MEAN CORPUSCULAR HGB CONC 33.8 g/dL (31.6-35.5); MEAN CORPUSCULAR VOLUME 102.6 fL (81.4-99.0); MONOCYTES ABSOLUTE AUTO 0.49 K/uL (0.20-0.90); MONOCYTES PERCENT AUTO 7.6 % (3.3-12.6); NEUTROPHILS ABSOLUTE AUTO 4.54 K/uL (1.0-7.6); NEUTROPHILS PERCENT AUTO 70.8 % (40.0-78.1); PLATELET COUNT,PLT 165 K/uL (130-375); RED BLOOD CELL COUNT 3.12 M/uL (4.14-5.76); WHITE BLOOD CELL COUNT,WBC 6.4 K/uL (3.2-11.0)
[2024-06-27 02:25] LABS: BASOPHILS ABSOLUTE AUTO 0.01 K/uL (0.00-0.10); EOSINOPHILS ABSOLUTE AUTO 0.01 K/uL (0.00-0.40)
[2024-06-27] MEDS: Diphtheria,Pertussis(Acell),Tetanus Vaccine 0.5 ML Syringe IM ONE (02:41)
[2024-06-27] MEDS: Sodium Chloride 0.9% 1,000 ML IV SCH (02:41)
[2024-06-27 02:48] LABS: A/G RATIO 0.8 (1.2-2.2); ALANINE AMINOTRANSFERASE,ALT 19 U/L (12-78); ALBUMIN 3.2 g/dL (3.4-5.0); ALKALINE PHOSPHATASE 100 U/L (46-116); ASPARTATE AMNIOTRANSFERASE,AST 22 U/L (15-37); BILIRUBIN TOTAL 0.5 mg/dL (0.2-1.0); BLOOD UREA NITROGEN,BUN 26 mg/dL (7-18); CALCIUM 9.4 mg/dL (8.5-10.1); CARBON DIOXIDE,CO2 26 mmol/L (21-32); CHLORIDE,CL 101 mmol/L (100-108); CREATININE 1.2 mg/dL (0.8-1.3); EST CRCL DRUG DOSING (CG) 43.37 mL/min; ESTIMATED GFR 59 mL/min (>60); GLUCOSE RANDOM 146 mg/dL (74-106); POTASSIUM,K 3.8 mmol/L (3.6-5.2); PROTEIN TOTAL,TP 7.1 g/dL (6.4-8.2); SODIUM,NA 139 mmol/L (140-148)
[2024-06-27 02:50] LABS: ANION GAP 15.8 mmol/L (5.0-14.0)
[2024-06-27 02:51] LABS: TROPONIN I HIGH SENSITIVITY 62.1 pg/mL (<=60.3)
[2024-06-27] MEDS: Lidocaine 1% with EPINEPHrine 1:100,000 20 ML MDV INJECT ONE (03:11)
[2024-06-27] MEDS: Bacitracin Oint 1 GM U/D Packet TOP ONE (03:11)
[2024-06-27] MEDS: Aspirin 81 MG Tab.Chew PO ONE (03:11)
[2024-06-27 04:32] LABS: APPEARANCE,URINE CLEAR (CLEAR); BILIRUBIN,URINE NEGATIVE (NEGATIVE); COLOR,URINE YELLOW (YELLOW); GLUCOSE,URINE NEGATIVE (NEGATIVE); KETONES,URINE NEGATIVE (NEGATIVE); LEUKOCYTE ESTERASE,URINE NEGATIVE (NEGATIVE); NITRITE,URINE NEGATIVE (NEGATIVE); OCCULT BLOOD,URINE NEGATIVE (NEGATIVE); PH,URINE 5.5 (5.0-8.0); PROTEIN,URINE TRACE mg/dL (NEGATIVE); UROBILINOGEN,URINE 0.2 EU/dL (0.2-1.0)
[2024-06-27 04:39] LABS: AMORPHOUS SEDIMENT,URINE NOT SEEN; BACTERIA,URINE FEW; EPITHELIAL CELLS,URINE FEW; MUCUS,URINE FEW; RBC,URINE 0-5 (0-5); WBC,URINE 0-5 (0-5)
[2024-06-27 08:29] VITALS: BP 163/87; PULSE 65
== END 2024-06-27 10:45 | disposition home or self-care (01) ==
LOC: JP.ED 01:35
DX: S01.81XA Laceration without foreign body of other part of head, initial encounter (principal); S09.90XA Unspecified injury of head, initial encounter; I10 Essential (primary) hypertension; E78.00 Pure hypercholesterolemia, unspecified; J44.89 Other specified chronic obstructive pulmonary disease; K21.9 Gastro-esophageal reflux disease without esophagitis; E66.9 Obesity, unspecified; Z95.1 Presence of aortocoronary bypass graft; Z79.899 Other long term (current) drug therapy; Z79.82 Long term (current) use of aspirin; Z88.0 Allergy status to penicillin; Z68.25 Body mass index [BMI] 25.0-25.9, adult; Z88.2 Allergy status to sulfonamides; W01.198A Fall on same level from slipping, tripping and stumbling with subsequent striking against other object, initial encounter
CPT/HCPCS: 12013; 36415; 70450; 80053; 81001; 83605; 84484; 85025; 90471; 90715; 93005; 96360; 99284; A9270; J2004; J7030; 93010